=== PATIENT | male | born 1950 | race African-American/Black ===

== ENCOUNTER 2017-03-17 07:47 | Day surgery (SDC) | payer OTHER ==
[~2017-03-17] VITALS: Ht 190.5 cm; Wt 106.4 kg
[~2017-03-17 07:47] MED LIST: LOSA1TAB37 PO; SIMV-261 PO
[2017-03-17] MEDS ORDERED: MOXIFLOXACIN HCL 0.5% 3 ML OPHTHALMIC SOLUTION OD ONE (08:00)
[2017-03-17] MEDS ORDERED: RINGERS SOLUTION,LACTATED 500 ML IV ONE ×2 (08:00→08:03)
[2017-03-17] MEDS ORDERED: DICLOFENAC SODIUM 0.1% 2.5 ML OPHTHALMIC SOLUTION OD ONE (08:00)
[2017-03-17] MEDS ORDERED: TROPICAMIDE 1% 2 ML OPHTHALMIC SOLUTION ONE (08:02)
[2017-03-17] MEDS ORDERED: MOXIFLOXACIN HCL 0.5% 3 ML OPHTHALMIC SOLUTION ONE (08:02)
[2017-03-17] MEDS ORDERED: DICLOFENAC SODIUM 0.1% 2.5 ML OPHTHALMIC SOLUTION ONE (08:02)
[2017-03-17] MEDS ORDERED: PHENYLEPHRINE HCL 2.5% 2 ML OPHTHALMIC SOLUTION ONE (08:03)
[2017-03-17] MEDS: TROPICAMIDE 1% 2 ML OPHTHALMIC SOLUTION OD SCH ×2 (08:46→08:54)
[2017-03-17] MEDS: PHENYLEPHRINE HCL 2.5% 2 ML OPHTHALMIC SOLUTION OD SCH ×2 (08:46→08:54)
[2017-03-17] MEDS ORDERED: POVIDONE-IODINE 10% 15 ML SOLUTION UD TP ONE ×2 (12:00)
[2017-03-17] MEDS ORDERED: DEXAMETHASONE SOD PHOS 4 MG/ML VIAL IVP ONE ×2 (12:00)
[2017-03-17] MEDS ORDERED: MIDAZOLAM HCL 2 MG/2 ML VIAL IVP ONE (12:00)
[2017-03-17] MEDS ORDERED: HYALURONATE SOD/CHONDROITIN SOD 0.5 ML VIAL IO ONE ×2 (12:00)
[2017-03-17] MEDS ORDERED: HYALURONATE SODIUM 12 MG/ML 0.8 ML SYRINGE IO ONE ×2 (12:00)
[2017-03-17] MEDS ORDERED: TETRACAINE HCL VISCOUS 0.5% 0.6 ML OPHTHALMIC SOLUTION OD ONE ×2 (12:00)
[2017-03-17] MEDS ORDERED: LIDOCAINE HCL/PF 1% 2 ML VIAL INJ ONE ×2 (12:00)
[2017-03-17] MEDS ORDERED: FentaNYL CITRATE-PF 100 MCG/2 ML VIAL IVP ONE (12:00)
== END 2017-03-17 11:20 | disposition home or self-care (01) ==
LOC: SURGERY 07:47
PROVIDERS: ATTEND Specialist
DX: H25.011 Cortical age-related cataract, right eye (principal); I10 Essential (primary) hypertension; E78.00 Pure hypercholesterolemia, unspecified; M54.2 Cervicalgia; M54.9 Dorsalgia, unspecified; Z98.890 Other specified postprocedural states
CPT/HCPCS: 66984; 93005; C1780; J1100; J2250; J3010; J3490 ×2; J7120